=== PATIENT | male | born 1950 | race Two or more races ===

== ENCOUNTER 2024-02-10 21:56 | Emergency (ER) | payer OTHER ==
[~2024-02-10] VITALS: Ht 157.5 cm; Wt 55.0 kg
[2024-02-10 21:56] VITALS: BP 120/68; PULSE 66; RESP 20; O2SAT 97
== END 2024-02-11 02:22 | disposition left against medical advice (07) ==
LOC: ER 21:56
DX: S61.216A Laceration without foreign body of right little finger without damage to nail, initial encounter (principal); Z53.21 Procedure and treatment not carried out due to patient leaving prior to being seen by health care provider; W25.XXXA Contact with sharp glass, initial encounter; Y93.89 Activity, other specified; Y92.89 Other specified places as the place of occurrence of the external cause; Y99.8 Other external cause status